=== PATIENT | female | born 1985 | race Caucasian/White ===

== ENCOUNTER 2020-10-18 05:42 | Day surgery (SDC) | payer MEDICAID ==
[2020-10-11 10:48] LABS: BASOPHILS % (AUTO) 0.5 % (0-1); EOSINOPHILS # (AUTO) 0.1 X10'3 (0-0.9); EOSINOPHILS % (AUTO) 0.7 % (0-6); LYMPHOCYTES # (AUTO) 1.7 X10'3 (1.1-4.8); LYMPHOCYTES % (AUTO) 21.3 % (21-51); MEAN CORPUSCULAR HEMOGLOBIN 31.8 PG (27.0-31.0); MEAN CORPUSCULAR HGB CONC 34.1 g/dL (33.0-36.5); MEAN CORPUSCULAR VOLUME 93.4 FL (78-98); MONOCYTES # (AUTO) 0.5 X10'3 (0-0.9); MONOCYTES % (AUTO) 6.7 % (2-12); NEUTROPHILS # (AUTO) 5.5 X10'3 (1.8-7.7); NEUTROPHILS % (AUTO) 70.8 % (42-75); PRE OP HEMATOCRIT 41.1 % (35.0-45.0); PRE OP PLATELET COUNT 225 X10'3 (140-440); RED CELL DISTRIBUTION WIDTH 12.8 % (11.5-14.5)
[2020-10-11 11:06] LABS: ALBUMIN 4.1 G/DL (3.4-5.0); ALBUMIN/GLOBULIN RATIO 0.9 (1.1-1.5); ALKALINE PHOSPHATASE 76 IU/L (46-116); BLOOD UREA NITROGEN 14 MG/DL (7-18); BUN/CREATININE RATIO 18.2 (6.6-38.0); CALCIUM 9.7 MG/DL (8.5-10.1); CHLORIDE 101 MMOL/L (99-107); CREATININE 0.77 MG/DL (0.40-0.90); PRE OP ALT 32 U/L (30-65); PRE OP ANION GAP 10 (8-16); PRE OP AST 16 U/L (10-37); PRE OP BILIRUB, TOTAL 0.5 MG/DL (0.0-1.0); PRE OP GLUCOSE 86 MG/DL (70-104); PRE OP POTASSIUM 4.2 MMOL/L (3.4-5.1); PRE OP SODIUM 138 MMOL/L (135-145); TOTAL CARBON DIOXIDE 26.7 MMOL/L (24-32); TOTAL PROTEIN 8.5 G/DL (6.4-8.2); eGFR 86 ML/MIN
[2020-10-11 11:45] LABS: HCG SERUM QL NEGATIVE
[~2020-10-18] VITALS: Ht 172.7 cm; Wt 123.4 kg
[~2020-10-18 05:42] MED LIST: NO HOME MEDS; ceFAZolin 2gm in dextrose, iso 50 ML IV ONE; famotidine 20mg tablet PO ONE; ringers solution, lacted 1,000 ML IV SCH
[2020-10-18 05:50] VITALS: BP 122/69
[2020-10-18] MEDS ORDERED: LIDOcaine 1% (10mg/ml) 2ml vial ONE (06:03)
[2020-10-18] MEDS ORDERED: BUPIVAcaine/PF 2.5mg/ml (0.25%) 10ml vial ONE (06:46)
[2020-10-18] MEDS ORDERED: LIDOcaine 0.5% (5mg/ml) 50ml vial ONE (08:10)
[2020-10-18] MEDS ORDERED: fentaNYL/PF 50MCG/1 ML 2ML syringe ONE (08:14)
[2020-10-18] MEDS ORDERED: MIDAZolam 5mg/5ml vial ONE (08:14)
[2020-10-18] MEDS ORDERED: propofol inj 20 ML IV ONE (08:28)
[2020-10-18] MEDS ORDERED: morphine 4 MG/ML inj SYRINge IV PRN (08:50)
[2020-10-18] MEDS ORDERED: proCHLORperazine 10 MG/2 ml inj IV PRN (08:50)
[2020-10-18] MEDS ORDERED: ringers solution, lacted 1,000 ML IV SCH (08:50)
[2020-10-18] MEDS ORDERED: ondansetron/PF 4mg/2ml inj IV PRN (08:50)
[2020-10-18] MEDS ORDERED: morphine 2 MG/ML inj. syringe IV PRN (08:50)
[2020-10-18] MEDS ORDERED: meperidine/PF 25mg/ml syringe IV PRN ×2 (08:50)
[2020-10-18 09:09] VITALS: BP 117/84
--- NOTE | 2020-10-18 09:09 | NUR ---
Received from OR via poncho, accompanied by Anesthesiologist Dr. Canut and report given by Anesthesiolgist. Left hand 20g PIV. Right hand dressing CDI. No oxygen, OCHOA, responds to verbal stimuli. Addendum: 10/18/20 at 0915 by Melony Niño RN Amended: Links added.
[2020-10-18 09:19] VITALS: BP 129/89
[2020-10-18] MEDS: meperidine/PF 25mg/ml syringe IV PRN ×2 (09:19→09:26)
[2020-10-18 09:20] VITALS: BP 129/89
[2020-10-18 09:30] VITALS: BP 95/65
--- NOTE | 2020-10-18 09:59 | NUR ---
Patient denies pain. Right hand wrapped with francis bandage per patient request. Educated regarding if dressing becomes too tight, remove and re-wrap lightly. Discharge paperwork signed and given to patient. All instructions gone over. Patient states she understands and will follow up with Dr. Rojas with any concerns are atypical signs. Patient confirms she received her pain medication prior to surgery today. VSS. Assisted to be dressed. PVI removed. Skin,circulation, movement assessed. Dressing to right hand CDI. Patient discharged home, grandmother is her ride.
== END 2020-10-18 09:59 | disposition home or self-care (01) ==
LOC: PAS 05:42
PROVIDERS: ATTEND Orthopaedic Surgery Hand Surgery
DX: M18.11 Unilateral primary osteoarthritis of first carpometacarpal joint, right hand (principal); Z91.09 Other allergy status, other than to drugs and biological substances; E66.9 Obesity, unspecified; Z98.890 Other specified postprocedural states; Z79.899 Other long term (current) drug therapy; Z20.828 Contact with and (suspected) exposure to other viral communicable diseases
CPT/HCPCS: 25312; 25447; 36415; 80053; 82948; 84703; 85025; 87635; J2001; J2175; J2250; J2704; J3010; J3490; J7120; A4215; A4618; A7000